=== PATIENT | female | born 1975 | race Two or more races ===

== ENCOUNTER 2021-10-06 14:30 | Outpatient (CLI) | payer OTHER ==
[~2021-10-06 14:30] MED LIST: CODE1TAB37 PO; COZAAR50 MG PO; FOLIC ACID1 MG; KETO10TA2 PO; MACROBID 100 M100 MG; MULTI VITAMIN1 EACH PO; POLY119PG PO; PRENATAL1 TAB; SEPTRA 80-400 T1 TAB PO; TOPROL XL50 M1 PO
== END 2021-10-06 14:31 | disposition home or self-care (01) ==
LOC: LAB 14:30
PROVIDERS: ATTEND Urology
DX: N30.00 Acute cystitis without hematuria (principal)

== ENCOUNTER 2023-02-17 08:15 | Outpatient (CLI) | payer OTHER | END 2023-02-17 08:35 | disposition home or self-care (01) | LOC: RAD 08:15 | PROVIDERS: ATTEND Internal Medicine | DX: E04.1 Nontoxic single thyroid nodule (principal); N28.1 Cyst of kidney, acquired ==

== ENCOUNTER 2023-02-26 12:50 | Outpatient (CLI) | payer OTHER | END 2023-02-26 13:52 | disposition home or self-care (01) | LOC: SONOGRAMA 12:50 | PROVIDERS: ATTEND Surgery | DX: D24.1 Benign neoplasm of right breast (principal); N60.11 Diffuse cystic mastopathy of right breast; N60.12 Diffuse cystic mastopathy of left breast ==